=== PATIENT | female | born 1975 | race Caucasian/White ===

== ENCOUNTER → 2019-04-01 | Outpatient (REF) | payer OTHER | LOC: M LAB LCGH 12:08 | PROVIDERS: ATTEND Registered Nurse | DX: Z12.4 Encounter for screening for malignant neoplasm of cervix (principal) ==

== ENCOUNTER → 2019-04-19 | Outpatient (CLI) | payer OTHER ==
--- NOTE | 2019-04-19 16:49 | REP ---
Bilateral lower extremity duplex venous ultrasound with reflux study. History: Varicose veins and pain. Findings: The deep veins are anechoic and fully compressible from the groin to the popliteal fossa in both lower extremities on two-dimensional scanning. Color flow and spectral Doppler interrogation show no evidence of deep vein thrombosis. There is a small nonocclusive thrombus visible in the greater saphenous vein on the left at the mid thigh level. The mid femoral veins are duplicated bilaterally. Reflux findings: On the left, reflux is seen in the common femoral vein, in the mid femoral vein and throughout the greater saphenous vein. The greater saphenous vein becomes quite tiny at the midthigh level and beyond. The greater saphenous vein appears to be reconstituted by a perforating collateral vein from the femoral vein at mid thigh level. The left greater saphenous vein measures 3.5 mm in AP dimension at the proximal saphenofemoral junction and displays 3.99-second duration reflux. The greater saphenous vein on the left measure 0.8 mm in AP dimension at midthigh level but displays reflux 2.95 seconds in duration. A 2.8 mm dimension of the greater saphenous vein is seen at the knee where there is 3.25-second duration reflux. The lesser saphenous vein measures 2.7 mm on the left. On the right, there is marked reflux in the common femoral vein on the right extending to the greater saphenous vein junction. Reflux then enters the right posterior communicator main producing large collaterals from the posterior thigh in the lateral calf on the right side. The greater saphenous vein on the right measures 16.9 mm in AP dimension proximally where there is 2.5-second duration reflux. Limited visualization is achieved in the mid and knee segment greater saphenous vein. The lesser saphenous vein on the right measures 3.3 mm. Impression: Bilateral venous reflux. Electronically Signed by Bienvenido Dai MD 04/20/2019 05:31 A
== END ==
LOC: M RAD 10:47
PROVIDERS: ATTEND Surgery
DX: I87.2 Venous insufficiency (chronic) (peripheral) (principal); I83.813 Varicose veins of bilateral lower extremities with pain